=== PATIENT | female | born 1945 | race Caucasian/White ===

== ENCOUNTER → 2024-12-30 | Day surgery (SDC) | payer MEDICARE, OTHER ==
[2024-12-27 14:51] LABS: BASOPHILS % 0.5 % (0.0-1.0); EOSINOPHILS % 2.3 % (0.0-6.0); LYMPHOCYTES % 20.7 % (18.0-39.1); MONOCYTES % 10.3 % (4.4-11.3); NEUTROPHILS % 65.9 % (38.7-80.0); RED CELL DISTRIBUTION WIDTH 13.2 % (11.7-14.4)
[2024-12-27 15:10] LABS: EST GLOMERULAR FILTRATION RATE 37.0 ML/MIN (>=60)
[~2024-12-30] MED LIST: ACETAMINOPHEN 1000 MG/100 ML 100 ML IV ONE; ASPIRIN81 MG PO; ATORVASTATIN CA80 MG PO; BACLOFEN10 MG PO; BUPIVACAINE LIPOSOME/PF 266 MG/20 ML IJ ONE; BYSTOLIC10 MG PO; CALCIUM + VITA1 EACH PO; CLOPIDOGREL75 MG PO; CO Q-10400 MG PO; CYCLOBENZAPRINE10 MG PO; DEXAMETHASONE SOD PHOS INJ 4 MG/ML SDV ONE; DOXAZOSIN MESYLA2 MG PO; EPHEDRINE SULFATE INJ 50 MG/ML VIAL ONE; EVISTA60 MG PO; FARXIGA10 MG PO; FENTANYL CITRATE/PF 100MCG/2 ML INJ ONE; FUROSEMIDE40 MG PO; GLIPIZIDE5 MG PO; LIDOCAINE HCL 2% LOCAL INJ 5 ML SDV VIAL INJ ONE; LOSARTAN POTAS100 MG PO; MOUNJARO2.5 MG/0.5 SC; MYRBETRIQ25 MG PO; ONDANSETRON HCL INJ 2MG/ML 2ML 2 MG/ML VIAL ONE; PHENYLEPHRINE HCL 1% 10 MG/ML VIAL ONE; POTASSIUM CHLOR8 MEQ PO; PROPOFOL IV EMULSION 10 MG/ML 20 ML VIAL ONE; ROCURONIUM BROMIDE 1 ML IV ONE; SEVOFLURANE INHAL SOLN 250 ML PEN BTL ONE; SODIUM CHLORIDE 0.9% INJ 10 ML VIAL ONE; SUGAMMADEX SODIUM 200 MG/2 ML VIAL IV ONE; ULTRAM 50MG50 MG PO; Vancomycin IV 1 GM VIAL ONE; ZETIA10 MG PO
[2024-12-30] MEDS: LACTATED RINGER'S 1,000 ML ONE (06:35)
[2024-12-30] MEDS: CEFAZOLIN SODIUM 2 GM ONE (06:36)
[2024-12-30 10:47] VITALS: TEMP 97.1
[2024-12-30] MEDS: FENTANYL CITRATE/PF 100MCG/2 ML INJ ONE (10:57)
[2024-12-30] MEDS: HYDROMORPHONE 1MG/1ML INJ ONE (11:27)
[2024-12-30 12:10] VITALS: BP 155/81; PULSE 86; RESP 18; O2SAT 99
== END | disposition home or self-care (01) ==
LOC: OR 05:23
PROVIDERS: ATTEND Orthopaedic Surgery Sports Medicine
DX: M19.012 Primary osteoarthritis, left shoulder (principal); M25.712 Osteophyte, left shoulder; E11.9 Type 2 diabetes mellitus without complications; I10 Essential (primary) hypertension; E78.5 Hyperlipidemia, unspecified; I25.10 Atherosclerotic heart disease of native coronary artery without angina pectoris; Z88.1 Allergy status to other antibiotic agents; Z88.7 Allergy status to serum and vaccine; Z88.8 Allergy status to other drugs, medicaments and biological substances; Z01.810 Encounter for preprocedural cardiovascular examination; Z01.812 Encounter for preprocedural laboratory examination; Z01.818 Encounter for other preprocedural examination; Z79.02 Long term (current) use of antithrombotics/antiplatelets; Z79.82 Long term (current) use of aspirin; Z79.84 Long term (current) use of oral hypoglycemic drugs; Z79.85 Long-term (current) use of injectable non-insulin antidiabetic drugs; Z79.899 Other long term (current) drug therapy; Z86.12 Personal history of poliomyelitis; Z95.5 Presence of coronary angioplasty implant and graft
CPT/HCPCS: 23472; 36415 ×2; 71046; 73020; 80048; 82948; 85025; 86850; 86900; 93005; C1713 ×7; C1776 ×4; J0131; J0666; J1100; J1171; J2003; J2371; J2405; J2704; J3010; J3373; J7121